=== PATIENT | male | born 1935 | race Caucasian/White ===

== ENCOUNTER 2023-12-12 13:27 | Emergency (ER) | payer MEDICARE ==
[~2023-12-12] VITALS: Ht 170.2 cm; Wt 68.0 kg
[2023-12-12 13:41] VITALS: O2SAT 98
[2023-12-12] MEDS ORDERED: METF-440 PO (13:59)
[2023-12-12] MEDS ORDERED: ROSU40TA PO (13:59)
[2023-12-12] MEDS ORDERED: LEVO500T90 PO (13:59)
[2023-12-12] MEDS ORDERED: RAMI5CAP30 PO (13:59)
[2023-12-12] MEDS ORDERED: LANS30CA54 PO (13:59)
[2023-12-12] MEDS ORDERED: APIX2.5T PO (13:59)
[2023-12-12] MEDS ORDERED: TADA5TAB2 PO (13:59)
[2023-12-12] MEDS ORDERED: DAPA10TA PO (13:59)
[2023-12-12] MEDS ORDERED: ASPI81TA31 PO (13:59)
[2023-12-12] MEDS ORDERED: FINA5TAB11 PO (13:59)
[2023-12-12] MEDS ORDERED: MIRALAX 17 GM POWD.PACK ONE (14:11)
[2023-12-12] MEDS ORDERED: MIRALAX 17 GM POWD.PACK PO ONE (14:15)
[2023-12-12] MEDS ORDERED: MAGNESIUM CITRATE 296 ML BOTTLE PO ONE (14:15)
[2023-12-12] MEDS ORDERED: MAGNESIUM CITRATE 296 ML BOTTLE ONE (14:21)
[2023-12-12] MEDS ORDERED: POLY119P2 PO (14:33)
[2023-12-12] MEDS ORDERED: SENN1TAB77 PO (14:33)
== END 2023-12-12 14:46 | disposition home or self-care (01) ==
LOC: ER 13:27
DX: K59.00 Constipation, unspecified (principal); E11.9 Type 2 diabetes mellitus without complications; I10 Essential (primary) hypertension; Z95.0 Presence of cardiac pacemaker; Z79.82 Long term (current) use of aspirin; Z79.899 Other long term (current) drug therapy
CPT/HCPCS: A4606; A4663